=== PATIENT | female | born 1985 | race Two or more races ===

== ENCOUNTER 2017-06-04 07:45 | Inpatient (IN) | payer OTHER ==
--- NOTE | 2017-05-28 12:33 | GHP ---
[f rep st] PREOP HISTORY AND PHYSICAL DATE OF ADMISSION: 06/04/2017 DATE OF SURGERY: Will be 05/28/2017. PREOPERATIVE DIAGNOSIS: Intrauterine at 39 and 1/7 weeks gestation with breech presentation. PROCEDURE TO BE PERFORMED: Primary lower transverse section. SURGEON: Dr. iCara Claudio. DECISION SUPPORT MANAGER: Jacqueline Kline RN HISTORY OF PRESENT ILLNESS: Johanny is a 32-year-old, 1, para 0, with a last menstrual period of 09/02/2016, and an EDC of 06/10/2017, which was confirmed by an 11 week ultrasound. She has had good care at [facility] since registration at 11 weeks and has had an uncomplicated course. Her risk factors include exercise-induced asthma, history of a syncopal episode and a breech presentation diagnosed at 34 weeks. The patient has confirmed again breech presentation today. She has been offered an attempted external cephalic version and carefully reviewed the risks and benefits of that procedure and she has declined that procedure; she wishes to have a for delivery. The patient has no past obstetrical history. This is her first . PAST GYNECOLOGICAL HISTORY: She has a normal menstrual triad, with menarche at 13; interval every 28-30 days, length of 5 days showing regular last menstrual period of 09/02/2016. She has a history of an abnormal Pap back in 2004, had a colposcopy; no treatment was done. The rest of Paps have been normal and no history of any sexually transmitted diseases. PAST MEDICAL HISTORY: Significant only for exercise-induced asthma. She had a syncopal episode. She has had a negative full workup with Cardiology and Neurology. SURGICAL HISTORY: In 2002 she had a left ACL repair, 2006 an arthroscopy to her left knee and in 2014 a right ACL repair. ALLERGIES: No known drug allergies. MEDICATIONS: Include albuterol inhaler p.r.n., Claritin p.r.n., vitamins with DHA. LABS: She is A positive, antibody negative, RPR nonreactive, rubella immune, hepatitis negative, HIV negative. Cystic fibrosis, SMA, and Fragile X negative. Pap normal. Gonorrhea and chlamydia normal. Verifi normal. AFP negative. 1-hour GTT 89. GBS is negative. SOCIAL HISTORY: She is . She lives with her . She works as a physician's chemical laboratory assistant in Neurosurgery and she denies tobacco, alcohol and drug use. He has 2 children from a previous marriage. FAMILY HISTORY: Maternal grandfather had coronary artery disease. Maternal grandfather had hypertension. Maternal aunt had thyroid disease and lupus. Paternal aunt had seizures. Brother has asthma. No other significant history. OBJECTIVE: VITAL SIGNS: Today she is afebrile. Blood pressure is 92/56. Urine dip is negative. Weight is 157. She has had a total of 33 pound weight gain in this . GENERAL: She is a well-developed, well-nourished, gravid female, in no acute distress. LUNGS: Clear to auscultation bilaterally. HEART: Regular rate and rhythm. No murmurs. ABDOMEN: Gravid. Nontender. Fundal height is 38. heart tones are in [id number] and the baby is confirmed breech. PELVIC: Exam was deferred. ASSESSMENT/PLAN: 32-year-old, 1, para 0, who will be 39 and 1/7th weeks gestation on 06/04/2017, desired a scheduled for breech presentation. The patient was consented for the procedure today. She understands the risks and benefits. Risks including bleeding, infection, damage to internal organs, uterus, tubes, ovaries, bowel, bladder, nerves, blood vessels, ureters, risk of injury, risk of hemorrhage requiring blood transfusion, or hysterectomy. She understood these risks and benefits and agreed to proceed. /[id number]/MODL MTDD
[2017-06-04] MEDS ORDERED: ceFAZolin 2 GM/DEXTROSE 100 ML IV ONE (08:15)
[2017-06-04] MEDS ORDERED: CITRIC ACID/SODIUM CITRATE 30 ML UDCUP PO ONE ×2 (08:15→08:25)
[2017-06-04] MEDS ORDERED: LR 500 ML IV ONE ×2 (08:25→08:30)
--- NOTE | 2017-06-04 08:27 | PREANESOB ---
Obstetric Pre-Anesthesia Info - General Info Proposed Procedure: C Section : 1 Para: 0 WBD: 39 - Info Status: Full Term Monitors: External FHR Baseline (bpm): 130 FHR Pattern: Reassuring - Labor Status Section History: Primary Indications for Current Section: Breech Labor Epidural: No Anesthesia ROS: Heartburn with . S/P spinal for knee surgery x 3. Allergies/Adverse Reactions: Allergy/AdvReac Type Severity Reaction Status Date / Time No Known Allergies Allergy Unverified 06/04/17 08:01 Visit Medications: Generic Name Dose Route Start Last Admin Trade Name Freq PRN Reason Stop Dose Admin Lactated Ringer's 500 mls @ 0 mls/hr 06/04/17 08:30 Lr IV 06/04/17 08:31 ONCE ONE As Directed Lactated Ringer's 1,000 mls @ 125 mls/hr 06/04/17 08:30 Lr IV 12/01/17 08:29 CONT ERICKA Cefazolin Sodium/Dextrose 100 mls @ 200 mls/hr 06/04/17 08:15 Ancef 2 Gm (Premix) IV 06/04/17 08:44 ONCALL ONE Discontinued Medications Generic Name Dose Route Start Last Admin Trade Name Freq PRN Reason Stop Dose Admin Citric Acid/Sodium Citrate 30 ml 06/04/17 08:15 Bicitra PO 06/04/17 08:16 ONCALL ONE - Anesthesia History Response to Local Anesthetics: Normal Anesthesia & Operative History: No Prior Problems Family Anesthesia History: Negative - Social History Substance Use/Abuse: Denies - Focused Exam Blood Pressure: 124/87 Heart Rate: 46 Physical Exam: Within normal limits. ASA Status: II - Plan Consent Signed and on Chart: Yes Patient/Guardian Understands and Agrees to Plan: Yes
[2017-06-04] MEDS ORDERED: LR 1,000 ML IV SCH ×2 (08:30)
[2017-06-04] MEDS ORDERED: LIDOCAINE 1% 2 ML INJ ONE (08:56)
[2017-06-04] MEDS ORDERED: morphINE PF 10 MG/10 ML INJ ONE (09:10)
[2017-06-04] MEDS ORDERED: fentaNYL 100 MCG/2 ML INJ ONE (09:11)
[2017-06-04 09:22] LABS: % IMMATURE GRANULYOCYTES 0.3 % (0.0-1.1); ABSOLUTE IMMATURE GRANULOCYTES 0.02 10^3/uL (0.00-0.10); ADD DIFF? NO; ADD MORPH? NO; ADD SCAN? NO; ATYPICAL LYMPHOCYTE FLAG 0 (0-99); FRAGMENT RBC FLAG 0 (0-99); HEMATOCRIT 39.2 % (38.0-47.0); HEMOGLOBIN 13.7 g/dL (12.6-16.3); LEFT SHIFT FLG 0 (0-99); LIPEMIA HEMOLYSIS FLAG 90 (0-99); MEAN CELL HEMOGLOBIN 28.5 pg (27.9-34.1); MEAN CELL HEMOGLOBIN CONCENTR. 34.9 g/dL (32.4-36.7); MEAN CELL VOLUME 81.7 fL (81.5-99.8); MEAN PLATELET VOLUME 10.9 fL (8.7-11.7); PLATELET CLUMPS FLAG 0 (0-99); PLATELET COUNT 150 10^3/uL (150-400); RED CELL DISTRIBUTION WIDTH 12.7 % (11.5-15.2)
[2017-06-04] MEDS ORDERED: ONDANSETRON 4 MG/2 ML VIAL ONE (09:22)
[2017-06-04] MEDS ORDERED: DEXAMETHASONE 4 MG/ML VIAL ONE (09:22)
[2017-06-04] MEDS ORDERED: OXYTOCIN 100 UNITS/10 ML VIAL ONE (09:22)
[2017-06-04] MEDS ORDERED: PHENYLEPHRINE HCL 100 MCG/ML SYR ONE (09:22)
[2017-06-04] MEDS ORDERED: SIMETHICONE 80 MG TAB CHEW PO PRN (11:03)
[2017-06-04] MEDS ORDERED: DOCUSATE SODIUM 100 MG CAP PO PRN (11:03)
[2017-06-04] MEDS ORDERED: HYDROCODONE/APAP 5/325 TAB PO PRN (11:03)
[2017-06-04] MEDS ORDERED: ACETAMINOPHEN 325 MG TAB PO PRN (11:03)
[2017-06-04] MEDS ORDERED: PROMETHAZINE HCL 25 MG/ML INJ IVP PRN (11:03)
[2017-06-04] MEDS ORDERED: BISACODYL 10 MG SUPP PR PRN (11:04)
[2017-06-04] MEDS ORDERED: LACTULOSE 20 GM/30 ML UDCUP PO PRN (11:04)
[2017-06-04] MEDS ORDERED: MAGNESIUM HYDROXIDE 30 ML UDCUP PO PRN (11:04)
[2017-06-04] MEDS ORDERED: POLYETHYLENE GLYCOL 3350 17 GM PKT PO PRN (11:04)
--- NOTE | 2017-06-04 11:08 | OBDEL ---
Info Type: Primary GBS+: No Indications for Delivery: Elective (39 weeks, breech presentation) Operative Report - Delivery Pre-op Diagnoses: IUP @ 39 weeks, breech presentation Post-op Diagnoses: same Nulliparous Prior to Delivery: Yes Presentation at Delivery: Breech Procedure: Scheduled Surgeon: Ciara Claudio Geriatric Nursing Assistant: Rossana Kerr Anesthesiologist: Devon Farooq Formulation Scientist/FARMER AND GRAZIER: Areli Hi L&Justin Analgesia/Anesthesia Type: Spinal Complications: None Findings: normal uterus, tubes and ovaries IV Fluid (ml): 3,000 EBL: 800 Data Lindsay Delivery Date: 06/04/17 Delivery Time: 10:14 DAMIAN: 06/10/17 Gestational Age: 39 week(s) and 1 day(s) Sex of Infant: Male Score (1 Min): 8 Score (5 Min): 8 ICD10 Worksheet Patient Problems: Problems Problem Status Onset Delivery by section for breech presentation Acute - ICD10 Problem Qualifiers (1) Delivery by section for breech presentation
[2017-06-04] MEDS ORDERED: NALOXONE HCL 0.4 MG/ML INJ IVP PRN (11:58)
--- NOTE | 2017-06-04 12:00 | POSTANESTH ---
Post Anesthetic Evaluation Cardiovascular Status: Normal, Stable Respiratory Status: Normal, Stable, Similar to Pre-op Cond. Level of Consciousness/Mental Status: Can Participate in Eval, Alert and Oriented Pain Control: Adequate, Prn Tx Ordered Nausea/Vomiting Control: Adequate, Prn Tx Ordered Complications Possibly Related to Anesthesia: None Noted
[2017-06-04] MEDS ORDERED: KETOROLAC 30 MG/1 ML SDV ONE (12:22)
[2017-06-04] MEDS: KETOROLAC 30 MG/1 ML SDV IVP PRN ×2 (12:24→18:20)
[2017-06-04] MEDS: ONDANSETRON 4 MG/2 ML VIAL IVP PRN ×2 (17:08→23:05)
--- NOTE | 2017-06-04 22:38 | GOP ---
[f rep st] OPERATIVE REPORT DATE OF OPERATION: 06/04/2017 SURGEON: Ciara Claudio MD LANGUAGE TEACHER: Rossana Kerr DO. ANESTHESIA: Spinal anesthesia. ANESTHESIOLOGIST: Dr. Devon Farooq PREOPERATIVE DIAGNOSIS: Intrauterine at 39 and 1/7 weeks' gestation with breech presentat ion. POSTOPERATIVE DIAGNOSIS: Intrauterine at 39 and 1/7 weeks' gestation with breech presenta tion. PROCEDURE PERFORMED: Primary lower transverse section. FINDINGS: Viable male. Apgars of 8 and 8. Weight of 7 pounds 3 ounces. ESTIMATED BLOOD LOSS: For the procedure was 800 cc. INDICATIONS: The patient is a 32-year-old, 1, para 0, with a last menstrual period of 09/02, and an EDC of 06/10/2017, confirmed by 11-weeks' ultrasound. She has had good care at [facility] since registration at 11 weeks. Had an uncomplicated course. She was diagnosed with breech presentation at 34 weeks, and confirmed breech presentation throughout the remainder of her . She was offered an attempted external cephalic version, carefully revie wing the risks and benefits, and patient declined. The patient agreed that she wished to have a lili le for breech. She was consented for the procedure. She understood the risks and benef its. The risks including bleeding, infection, damage to internal organs, uterus, tubes, ovaries, kath wel, bladder, nerves, blood vessels, ureters, risk of injury, risk of hemorrhage requiring blo od transfusion, hysterectomy, and . She understood these risks and benefits, agreed to proceed . DESCRIPTION OF PROCEDURE: Patient was taken to the operating room, where she was given a spinal ane sthesia without difficulty. She was prepped and draped in the dorsal supine position with a leftwar d tilt, and a Gracia catheter was placed in her bladder. After adequate anesthesia was assured, a tr ansverse skin incision was made with a scalpel, and the incision was carried down to the underlying layer of fascia with the Bovie. The fascia was incised in the midline. Fascial incision was extend ed laterally with Nettles scissors. Superior aspect of the fascial incision was grasped with Darinel cl amps, elevated, and the rectus muscles were dissected off sharply. Inferior aspect of the fascial i ncision was grasped with Darinel clamps, elevated, and the rectus muscles were dissected off sharply. Rectus muscles were in the midline. Peritoneum was entered sharply. Peritoneal incisio n was extended superiorly and inferiorly with good visualization of bladder. Bladder blade was inse rted, and the vesicouterine peritoneum was entered sharply with Metzenbaum scissors. The incision w as extended laterally, and bladder flap was created digitally. Bladder blade was reinserted, and e uterus was incised with a knife. There was clear amniotic fluid upon entry in the uterine cavity. The incision was extended laterally with bandage scissors. The was in bethany breech present ation. Was delivered atraumatically with standard breech extraction maneuvers. The mouth and nose were bulb suctioned. Cord was clamped and cut. was handed off to the waiting nurse practitioner. Cord bloods were sent. The placenta was removed manually. The uterus was exteriori zed and cleared of all clots and debris. The uterine incision was repaired with 0 Vicryl in a runni ng, locked fashion, and a second imbricating suture was performed with 0 Vicryl, and good hemostasis was obtained. The uterus was returned to the abdomen. Gutters were cleared of all clots and debri s. Reinspection of the uterine incision again assured hemostasis. The rectus muscles were approxim ated with 2-0 Vicryl in inverted mattress fashion. The fascia was closed with #1 Vicryl in a runnin g fashion. The subcutaneous layer was closed with 2-0 Vicryl. Skin was closed with 4-0 Vicryl. Th e patient tolerated the procedure well. Sponge, lap, needle, and instrument counts were correct x2. Patient went to the recovery room in good condition. FLUID REPLACEMENT: 3000 cc. URINE OUTPUT: 200 cc. /[id number]/MODL
[2017-06-05] MEDS: KETOROLAC 30 MG/1 ML SDV IVP PRN ×2 (00:18→06:24)
[2017-06-05] MEDS: SENNOSIDES/DOCUSATE SODIUM TAB PO SCH ×3 (01:10→23:14)
--- NOTE | 2017-06-05 11:44 | OBPP ---
Progress Note Assessment/Plan: Assessment: 32 y/o POD #1 s/p LTCS secondary to breech Plan: Bifera QD, PO pain meds and support. Pt with desire to d/c home tomorrow. 06/05/17 11:44 Subjective: Pt is doing well this am. She reports min pain controlled with Toradol. Ambulating and voiding without difficulty and has min lochia. She is working on breast feeding and baby is doing well. Objective: 06/05/17 04:40 Patient ABO/Rh A POSITIVE 06/04/17 09:05 Temp Pulse Resp BP Pulse Ox 36.6 C 67 16 110/75 96 06/05/17 08:00 06/05/17 08:00 06/05/17 08:00 06/05/17 08:00 06/05/17 08:00 Uterine Position/Fundal Height: Umbilicus -2 Uterine Tone: Firm Physical Exam - Physical Exam General Appearance: WD/WN, alert, no apparent distress Neck: non-tender, full range of motion, supple Respiratory: chest non-tender, lungs clear, normal breath sounds Cardiac/Chest: regular rate, rhythm Abdomen: normal bowel sounds, incision (c/d/i, steristrips saturated but old blood) Extremities: swelling (no), Amelia's sign (neg)
[2017-06-05] MEDS: IRON POLYSAC/IRON HEME 28 MG TAB PO SCH (12:17)
[2017-06-05] MEDS: IBUPROFEN 600 MG TAB PO PRN ×2 (12:17→18:18)
[2017-06-05 20:54] VITALS: RESP 16
[2017-06-06] MEDS: IBUPROFEN 600 MG TAB PO PRN ×2 (03:31→10:08)
[2017-06-06] MEDS: IRON POLYSAC/IRON HEME 28 MG TAB PO SCH (10:08)
[2017-06-06] MEDS: SENNOSIDES/DOCUSATE SODIUM TAB PO SCH (10:10)
[2017-06-06 10:53] VITALS: BP 123/79; PULSE 65; TEMP 98.2; O2SAT 92
--- NOTE | 2017-06-06 11:40 | OBPP ---
Progress Note Assessment/Plan: Assessment: 1) s/p 1 LTCS secondary to breech POD # 2 - pt is stable 2) Anemia - pt is asymptomatic Plan: Plan for d/c home today Instructions reviewed with pt No Rx given Cont PNV, iron and colace Pelvic rest RTC in 2,4 and 6 weeks for pp visit 06/06/17 11:37 Subjective: Pt seen and examined. Doing well with no complaints. Pain is well controlled with Motrin and Tylenol. Pt is OOB, valeriy regular diet, voiding without difficulty and passing flatus. No BM yet. Denies any f/c/n/v/CP or SOB. BF without difficulty. Wants to go home today. Objective: 06/05/17 04:40 Patient ABO/Rh A POSITIVE 06/04/17 09:05 Temp Pulse Resp BP Pulse Ox 36.8 C 65 16 123/79 H 92 06/06/17 08:40 06/06/17 08:40 06/06/17 08:40 06/06/17 08:40 06/06/17 08:40 Uterine Position/Fundal Height: Umbilicus -2 Uterine Tone: Firm Physical Exam - Physical Exam General Appearance: WD/WN, alert, no apparent distress Respiratory: lungs clear, normal breath sounds Cardiac/Chest: regular rate, rhythm Abdomen: normal bowel sounds, non-tender, soft, flatus (+), incision (C/D/I with steri strips) Extremities: non-tender, normal inspection Skin: normal color, warm/dry Neuro/Psych: alert, normal mood/affect, oriented x 3
--- NOTE | 2017-06-06 11:43 | OBGCSDC ---
General Delivery Information - General Info : 1 Para: 1 Delivery Physician/CNM: Ciara Claudio Fur Polisher: Rossana Kerr Admission Date: 06/04/17 Labs: Patient ABO/Rh A POSITIVE 06/04/17 09:05 Hct 30.3 % (38.0-47.0) L 06/05/17 04:40 Vaginal - Diagnosis Presentation at Delivery: Breech - Operations/Procedures L&D Analgesia/Anesthesia Type: Spinal - Delivery Number of Prior Sections: 0 Indications for Current Section: Breech Type: Primary Surgical Procedures: Low Transverse Intra-op Complications: None EBL: 800 cc L&D Analgesia/Anesthesia Type: Spinal - Hospital Course Antepartum: Uncomplicated; Breech presentation Intrapartum: Presented for [facility] secondary to breech-scheduled. : Pain well controlled with Motrin and Tylenol. Passing flatus, no BM yet. Voiding without difficulty. Moderate lochia. BF without difficulty. Data Lindsay Delivery Date: 06/04/17 Delivery Time: 10:14 DAMIAN: 06/10/17 Gestational Age: 39 week(s) and 3 day(s) Sex of : Male Weight (gm): 3252 g Score (1 Min): 8 Score (5 Min): 8 Discharge Information - Discharge Information Discharge Medications: Ibuprofen, Vitamins Condition: Good Instruction/Follow Up: Two Weeks, Four Weeks, Six Weeks Discharge Physician/CNM: Rossana Kerr
== END 2017-06-06 12:07 | disposition home or self-care (01) | DRG 766 ==
LOC: FLD 07:45 → FOB 13:05
PROVIDERS: ADMIT Obstetrics & Gynecology; ATTEND Obstetrics & Gynecology
PROC: 10D00Z1 Extraction of Products of Conception, Low, Open Approach (ICD-10-PCS; principal; 2017-06-04)
DX: O32.1XX0 Maternal care for breech presentation, not applicable or unspecified (principal); O90.81 Anemia of the puerperium; O99.52 Diseases of the respiratory system complicating childbirth; J45.909 Unspecified asthma, uncomplicated; Z3A.39 39 weeks gestation of pregnancy; Z37.0 Single live birth
CPT/HCPCS: J0690; J1100; J1885; J2274; J2370; J2405; J2550; J2590; J3010

== ENCOUNTER → 2018-09-05 | Outpatient (CLI) | payer OTHER | LOC: FIMAGING 13:55 | PROVIDERS: ATTEND Hospitalist | DX: O30.041 Twin pregnancy, dichorionic/diamniotic, first trimester (principal); Z3A.12 12 weeks gestation of pregnancy ==

== ENCOUNTER → 2018-09-26 | Outpatient (CLI) | payer OTHER | LOC: FIMAGING 14:09 | PROVIDERS: ATTEND Obstetrics & Gynecology | DX: O30.042 Twin pregnancy, dichorionic/diamniotic, second trimester (principal); O09.292 Supervision of pregnancy with other poor reproductive or obstetric history, second trimester; Z3A.15 15 weeks gestation of pregnancy ==

== ENCOUNTER → 2018-10-11 | Outpatient (CLI) | payer OTHER | LOC: FIMAGING 14:59 | PROVIDERS: ATTEND Hospitalist | DX: O30.042 Twin pregnancy, dichorionic/diamniotic, second trimester (principal); O34.219 Maternal care for unspecified type scar from previous cesarean delivery; Z20.828 Contact with and (suspected) exposure to other viral communicable diseases; Z3A.17 17 weeks gestation of pregnancy ==

== ENCOUNTER → 2018-10-24 | Outpatient (CLI) | payer OTHER | LOC: FIMAGING 13:30 | PROVIDERS: ATTEND Obstetrics & Gynecology | DX: O30.042 Twin pregnancy, dichorionic/diamniotic, second trimester (principal); Z3A.19 19 weeks gestation of pregnancy; O34.219 Maternal care for unspecified type scar from previous cesarean delivery ==

== ENCOUNTER → 2018-11-10 | Outpatient (CLI) | payer OTHER | LOC: FIMAGING 12:17 | PROVIDERS: ATTEND Hospitalist | DX: O30.042 Twin pregnancy, dichorionic/diamniotic, second trimester (principal); Z3A.21 21 weeks gestation of pregnancy ==

== ENCOUNTER → 2018-11-22 | Outpatient (CLI) | payer OTHER | LOC: FIMAGING 13:57 | PROVIDERS: ATTEND Obstetrics & Gynecology | DX: O30.042 Twin pregnancy, dichorionic/diamniotic, second trimester (principal); O09.292 Supervision of pregnancy with other poor reproductive or obstetric history, second trimester; Z3A.23 23 weeks gestation of pregnancy ==

== ENCOUNTER → 2018-12-20 | Outpatient (CLI) | payer OTHER | LOC: FIMAGING 14:45 | PROVIDERS: ATTEND Obstetrics & Gynecology | DX: O30.043 Twin pregnancy, dichorionic/diamniotic, third trimester (principal); Z3A.28 28 weeks gestation of pregnancy; R00.0 Tachycardia, unspecified; O34.219 Maternal care for unspecified type scar from previous cesarean delivery ==

== ENCOUNTER 2019-01-06 16:36 | Observation (INO) | payer OTHER ==
--- NOTE | 2019-01-06 18:03 | OBPROG ---
Labor Progress Note Assessment/Plan: Assessment: 33 yo at 29w4d with Dez twins sent over from office for monitoring due to decreased FM. W over an hour of tracing - Category I for both babies and pt now feeling better /increased FM. DC home, f/u in office as currently scheduled. JM FHR: Twin A: 140bpm, mod artem, accels present, no decels. Twin B: 150bpm, mod artem, accels present, no decels. Oxytocin Orders Assessment - Pre-Induction/Augmentation Assessment Gestational Age: 29 week(s) and 4 day(s) ICD10 Worksheet Patient Problems: Problems Problem Status Onset Delivery by section for breech presentation Acute
== END 2019-01-06 18:15 | disposition home or self-care (01) ==
LOC: FLD 16:36
PROVIDERS: ADMIT Obstetrics & Gynecology; ATTEND Obstetrics & Gynecology
DX: O36.8130 Decreased fetal movements, third trimester, not applicable or unspecified (principal); O30.043 Twin pregnancy, dichorionic/diamniotic, third trimester; Z3A.29 29 weeks gestation of pregnancy
CPT/HCPCS: 59025; G0378

== ENCOUNTER → 2019-01-16 | Outpatient (CLI) | payer OTHER | LOC: FIMAGING 14:36 | PROVIDERS: ATTEND Obstetrics & Gynecology | DX: O30.043 Twin pregnancy, dichorionic/diamniotic, third trimester (principal); O99.513 Diseases of the respiratory system complicating pregnancy, third trimester; O34.219 Maternal care for unspecified type scar from previous cesarean delivery; J45.901 Unspecified asthma with (acute) exacerbation; Z3A.31 31 weeks gestation of pregnancy ==

== ENCOUNTER → 2019-01-18 | Outpatient (CLI) | payer OTHER | LOC: FIMAGING 14:55 | PROVIDERS: ATTEND Hospitalist | DX: M79.604 Pain in right leg (principal); O30.003 Twin pregnancy, unspecified number of placenta and unspecified number of amniotic sacs, third trimester ==

== ENCOUNTER 2019-02-06 13:41 | Observation (INO) | payer OTHER | END 2019-02-06 14:30 | disposition home or self-care (01) | LOC: FLD 13:41 | PROVIDERS: ADMIT Obstetrics & Gynecology; ATTEND Obstetrics & Gynecology | DX: O30.093 Twin pregnancy, unable to determine number of placenta and number of amniotic sacs, third trimester (principal); Z3A.34 34 weeks gestation of pregnancy ==

== ENCOUNTER 2019-02-09 12:35 | Outpatient (CLI) | payer OTHER | END 2019-02-09 13:21 | disposition home or self-care (01) | LOC: FOBOP 12:35 | PROVIDERS: ATTEND Obstetrics & Gynecology | DX: O30.003 Twin pregnancy, unspecified number of placenta and unspecified number of amniotic sacs, third trimester (principal); Z3A.34 34 weeks gestation of pregnancy ==

== ENCOUNTER 2019-02-13 12:53 | Outpatient (CLI) | payer OTHER | END 2019-02-13 13:45 | disposition home or self-care (01) | LOC: FOBOP 12:53 ==

== ENCOUNTER 2019-02-16 12:21 | Outpatient (CLI) | payer OTHER ==
--- NOTE | 2019-02-16 13:28 | OBPROG ---
Labor Progress Note Assessment/Plan: Assessment: IUP at 35 wks twin gestation routine monitoring Plan: reactive NSTs, nonpalpable ctxns infreq 02/16/19 13:24 Subjective/Intrapartum Course: 02/16/19 13:26 per RN pt feeling well . not feeling any discomfort for ctxns. GFM x2, no bld , no LOF, has u/s appt today - is taking ursodil - helps - Contraction Pattern Assessment Current Contraction Pattern: Other (Specify) (occas infeq mild ctxns) - FHR Assessment Twin A FHR (bpm): 120 FHR Pattern Variability: Moderate FHR Category: 1 (reactive) Twin B FHR (bpm): 130 FHR Pattern Variability: Moderate FHR Category: 1 (reactive) Oxytocin Orders Assessment - Pre-Induction/Augmentation Assessment Gestational Age: 35 week(s) and 3 day(s) ICD10 Worksheet Patient Problems: Problems Problem Status Onset Decreased movement Acute Delivery by section for breech presentation Acute
== END 2019-02-16 13:30 | disposition home or self-care (01) ==
LOC: FOBOP 12:21
PROVIDERS: ATTEND Hospitalist
DX: O30.043 Twin pregnancy, dichorionic/diamniotic, third trimester (principal); O26.611 Liver and biliary tract disorders in pregnancy, first trimester; K83.1 Obstruction of bile duct; O34.219 Maternal care for unspecified type scar from previous cesarean delivery; Z3A.34 34 weeks gestation of pregnancy

== ENCOUNTER 2019-02-20 11:54 | Outpatient (CLI) | payer OTHER ==
--- NOTE | 2019-02-20 13:11 | OBPROG ---
Labor Progress Note Assessment/Plan: Assessment: IUP at 36 wks with twins for routine monitoring Plan: reactive NSTs x2, d/c home 02/20/19 13:08 Subjective/Intrapartum Course: 02/20/19 13:09 PT NOT SEEN per RN, pt without complaints. GFM x2, no bld, LOF or painful ctxns - Contraction Pattern Assessment Current Contraction Pattern: Irregular (infreq) - FHR Assessment Twin A FHR (bpm): 120 FHR Pattern Variability: Moderate FHR Category: 1 (reactive with accels, no decels) Twin B FHR (bpm): 130 FHR Pattern Variability: Moderate FHR Category: 1 (reactive with accels, no decels) Oxytocin Orders Assessment - Pre-Induction/Augmentation Assessment Gestational Age: 36 week(s) and 0 day(s) ICD10 Worksheet Patient Problems: Problems Problem Status Onset Decreased movement Acute Delivery by section for breech presentation Acute
== END 2019-02-20 12:40 | disposition home or self-care (01) ==
LOC: FOBOP 11:54
PROVIDERS: ATTEND Obstetrics & Gynecology
DX: O30.003 Twin pregnancy, unspecified number of placenta and unspecified number of amniotic sacs, third trimester (principal); Z3A.36 36 weeks gestation of pregnancy

== ENCOUNTER 2019-02-23 10:26 | Outpatient (CLI) | payer OTHER ==
--- NOTE | 2019-02-23 11:33 | OBPROG ---
Labor Progress Note Assessment/Plan: Assessment: 33 y/o with di-di TIUP @ 36 3/7 weeks her for a NST Cholestasis of Plan: NST reactive, Cat I tracing x 2 Stable for d/c home with plan for scheduled RCS 02/28 secondary to cholestasis of - improved now since on Ursodiol BPs initially were elevated at 135/76 and then repeated 116/71, 108/69 and 111/ 71 Pt is asymptomatic at this time; reviewed PIH labs done 02/20 and all wnl with a P :C of 0.02 PTL precautions and PIH precautions given to pt 02/23/19 11:41 Subjective/Intrapartum Course: 02/23/19 11:33 Pt seen and examined. Doing well, but noted increased swelling in lower extremities since being seen 3 days ago. She had some protein in her urine and had PIH labs drawn 02/20. She denies any HAs or any visual changes at this time. She has noted b/l upper abd discomfort secondary to babies and weight of belly she thinks, but no specific pain under R breast or near ribcage. Her symptoms of cholestasis has improved since she started medication-Ursodiol. Good FM x 2. She had some +ctx's last night, about 4 in one hour, and then hydrated and was able to sleep. No further ctx's noted today. No LOF or VB. - Contraction Pattern Assessment Current Contraction Pattern: Irregular - FHR Assessment Twin A FHR (bpm): 120 FHR Pattern Variability: Moderate FHR Category: 1 Twin B FHR (bpm): 130 FHR Pattern Variability: Moderate FHR Category: 1 - Physical Exam General Appearance: WD/WN, alert, no apparent distress Abdomen: non-tender, soft, other (gravid) Extremities: non-tender, normal inspection DTR- Lower Extremities: Plantar (R): 1+, Plantar (L): 1+ Skin: normal color, warm/dry Neuro/Psych: alert, normal mood/affect, oriented x 3 Oxytocin Orders Assessment - Pre-Induction/Augmentation Assessment Gestational Age: 36 week(s) and 3 day(s) ICD10 Worksheet Patient Problems: Problems Problem Status Onset Twin gestation in third trimester Acute
== END 2019-02-23 11:55 | disposition home or self-care (01) ==
LOC: FOBOP 10:26
PROVIDERS: ATTEND Obstetrics & Gynecology
DX: O30.043 Twin pregnancy, dichorionic/diamniotic, third trimester (principal); Z3A.36 36 weeks gestation of pregnancy; O26.613 Liver and biliary tract disorders in pregnancy, third trimester; K83.1 Obstruction of bile duct

== ENCOUNTER 2019-02-27 13:04 | Outpatient (CLI) | payer OTHER | END 2019-02-27 14:22 | disposition home or self-care (01) | LOC: FOBOP 13:04 | PROVIDERS: ATTEND Obstetrics & Gynecology | DX: O30.003 Twin pregnancy, unspecified number of placenta and unspecified number of amniotic sacs, third trimester (principal); Z3A.37 37 weeks gestation of pregnancy ==

== ENCOUNTER 2019-02-28 05:35 | Inpatient (IN) | payer OTHER ==
--- NOTE | 2019-02-22 15:15 | GHP ---
[f rep st] PREOP HISTORY AND PHYSICAL DATE OF ADMISSION: 02/28/2019 DATE OF SURGERY: 02/28/2019 PREOPERATIVE DIAGNOSIS: Intrauterine with diamniotic dichorionic twin gestation at 37-1/7 weeks' gestation, also cholestasis of and also multiparity, desires permanent elective ster ilization. SURGERY TO BE TO PERFORMED: Repeat lower transverse section of twin babies and bilateral sa lpingectomy. SURGEON: Ciara Claudio MD REAL ESTATE EXECUTIVE ASSISTANT: Marlene Bedolla MD HISTORY OF PRESENT ILLNESS: The patient is a -munq-gau, 2, para 1-0-0-1 with a las t menstrual period of 06/05/2018, and an EDC of 03/20/2019, which was confirmed by a 7-week ultrasoun d. At that 7-week ultrasound, she was also diagnosed with having spontaneous diamniotic dichorionic twins, both viable, and she has been followed closely in this . Her significant ri sk factors are history of in 2016 secondary to breech presentation, patient desires a repea t section for these babies, exercise-induced asthma. She did have an asthma exacerbation in due to a URI but is now doing well. Dez twins have had good growth, monitored clos thiago. She had a positive urine drug screen for opiates early in July, however, felt to be due to poppy seed muffins. Her repeats were negative. She was positive for parvovirus IgG and IgM. Diffi cult to say if it was a recent infection. She had careful monitoring with MFM with weekly screening for hydrops and anemia, was cleared at 23 weeks. Twin B has a velamentous cord insertion, and she wa s diagnosed with cholestasis of at 35 weeks , started on Ursodiol, and recommended delivery at 37 weeks. Her twins have been well grown. Most recent ultrasound on 02/16/2019, twin A is breech and is not the presenting twin, baby is on the left. Twin B is vertex and presenting as on the right. Twin A estimated weight was 2538 g, 33rd percentile, MVP was 5.0, placenta is ante rior. Twin B was 2594 g, 39th percentile, MVP was 5.1, and baby is vertex and the presenting twin. Anatomy was normal. Recommendation per Dr. Shanks is repeat at 37 weeks. Patient is stabl e on Actigall, and she has 2 times a week nonstress tests and kick counts. Her labs that were signif icant for her diagnosis of cholestasis were drawn on February 13, 2019. She had an elevated AST of 49, A LT of 58, alk phos was 240, bilirubin was normal. Her bile acids were positive with colic acids of 8 .03. Those have not been rechecked. She did have some proteinuria at her last visit and camacho d PIH labs drawn. She has had normal blood pressures. PIH labs drawn were stable with a white count of 8.21, hemoglobin of 12.8, hematocrit 38, platelets 176, BUN 12, creatinine 0.8, uric acid was 7.3 , AST 34, ALT 47, and LDH of 471. Blood pressures most recently 106/68, so we are all in agreement t hat delivery is indicated at 37 weeks for the above factors. PAST OBSTETRICAL HISTORY: In May of 2017, she had a viable male, 7 pounds 3 ounces, planned C-secti on at 39 weeks for breech presentation. Patient declined external cephalic version. GYNECOLOGICAL HISTORY: Menarche at age 13, interval every 28 to 30 days, length of 5 days. Last men strual period was June 05, 2018. It was sure and regular, planned 2nd . She had 1 abnormal Pap with high-risk HPV. Colposcopy was ALEYDA 1, and she has no treatment since. She had a Mirena IUD placed immediately after the of her son, removed in May for . No other gynecologica l issues. PAST MEDICAL HISTORY: Significant for exercised-induced asthma. Uses an albuterol inhaler as needed . She did have an exacerbation of her asthma symptoms with the URI this , but she ultimatel y did fine. She was prone to syncope, had negative cardio and neuro workup with EKG and EEG. PAST SURGICAL HISTORY: In May of 2017, she had her . In 2014, she had a right ACL. In 03 06, arthroscopy of her left knee, and in 2002, a left ACL repair and wisdom teeth extraction. ALLERGIES: She has no known drug allergies. MEDICATIONS: vitamins, DHA, and ursodiol 50 mg t.i.d. SOCIAL HISTORY: She is . She lives with her , [place], and her son and her 2 stepchildr roxana. 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 She denies tobacco, alcohol, and drug use. FAMILY HISTORY: Paternal grandfather had heart disease, a CABG, and hypertension. Maternal grandmot her and maternal grandfather had type 2 diabetes. Maternal aunt had thyroid disease and lupus. Liz anikal grandfather had metastatic prostate cancer. Paternal grandmother had lymphoma. LABORATORY DATA: She is A positive, antibody negative, RPR nonreactive, rubella immune, hepatitis ne gative, HIV negative. Standard panel negative. Panorama was done which was negative for both twins, viable males. Pap was negative but positive for HPV types 18 and 45 in February of 2018. AFP was nega tive. One-hour GTT 85. GBS was negative. Varicella was immune. Parvovirus suggested possible rece nt infection, but careful monitoring ruled out babies for anemia or hydrops. REVIEW OF SYSTEMS: Negative except for pertinent positives as above in HPI. ASSESSMENT AND PLAN: A -cgqf-epk 2, para 1-0-0-1, who will be 37 weeks and 1 day w ith diamniotic dichorionic twin gestation and cholestasis of , desires repeat secti on and bilateral salpingectomy. Patient was consented for the procedure. She understands the risks and benefits, the risks including bleeding, infection, damage to the uterus including possible risk o f perforation, damage to other organs if perforation was to occur, damage to internal organs, tubes, ovaries, bowel, bladder, nerves, blood vessels, ureters, damage, hemorrhage requiring blood tra nsfusion or hysterectomy. She understood these risks and benefits and agreed to proceed. /[id number]/MODL
[2019-02-28] MEDS ORDERED: LR 500 ML IV ONE (06:01)
[2019-02-28] MEDS ORDERED: LR 1,000 ML IV SCH (06:01)
[2019-02-28] MEDS ORDERED: CITRIC ACID/SODIUM CITRATE 30 ML UDCUP PO ONE (06:01)
[2019-02-28] MEDS ORDERED: ceFAZolin 2 GM/DEXTROSE 100 ML IV ONE (06:01)
[2019-02-28] MEDS ORDERED: HEMABATE 250 MCG/1 ML AMP IM ONE (06:30)
[2019-02-28] MEDS ORDERED: OXYTOCIN 10 UNIT/ML VIAL ONE (06:30)
[2019-02-28] MEDS ORDERED: MISOPROSTOL 200 MCG TAB ONE (06:30)
[2019-02-28] MEDS ORDERED: METHYLERGONOVINE MAL 0.2 MG/ML INJ ONE (06:31)
[2019-02-28 06:37] LABS: PLATELET COUNT 151 10^3/uL (150-400)
[2019-02-28] MEDS ORDERED: BUPIVACAINE/DEXTROSE 7.5MG/ML 2 ML SPINAL AMP SP ONE (07:26)
[2019-02-28] MEDS ORDERED: METOCLOPRAMIDE 10 MG/2 ML VIAL ONE (07:26)
[2019-02-28] MEDS ORDERED: ONDANSETRON 4 MG/2 ML VIAL ONE (07:26)
[2019-02-28] MEDS ORDERED: morphINE PF 5 MG/10 ML INJ ONE (07:26)
[2019-02-28] MEDS ORDERED: OXYTOCIN 100 UNITS/10 ML VIAL ONE (07:31)
[2019-02-28] MEDS ORDERED: NALOXONE HCL 0.4 MG/ML INJ IVP PRN ×2 (07:35→07:37)
[2019-02-28] MEDS ORDERED: fentaNYL 100 MCG/2 ML INJ IVP PRN (07:35)
[2019-02-28] MEDS ORDERED: ONDANSETRON 4 MG/2 ML VIAL IVP PRN (07:35)
[2019-02-28] MEDS ORDERED: OXYCODONE/APAP 5/325 TAB PO PRN (07:35)
[2019-02-28] MEDS ORDERED: PHENYLEPHRINE HCL 100 MCG/ML SYR IVP PRN (07:35)
[2019-02-28] MEDS ORDERED: HYDROmorphONE/DILAUDID 1 MG/ML INJ IVP PRN (07:35)
--- NOTE | 2019-02-28 07:35 | PDHPUP ---
History & Physical Update H&P update statement: This history and physical update is based on an assessment of the patient which was completed after admission or registration (within 24 hours), but prior to the surgery/procedure. H&P update: H&P reviewed & patient examined, no change in patient's condition since H&P completed
--- NOTE | 2019-02-28 07:38 | PDANEPAE ---
ANE History of Present Illness Repeat for Twins ANE Past Medical History - Cardiovascular History Hx Hypertension: No Hx Arrhythmias: No - Pulmonary History Hx Asthma/Reactive Airway Disease: Yes Hx Sleep Apnea: No Sleep Apnea Screening Result - Last Documented: Negative - Chronic Pain History Chronic Pain: No ANE Review of Systems Review of Systems: - Exercise capacity Exercise capacity: >=4 METS ANE Patient History - Allergies Allergies/Adverse Reactions: No Known Allergies Allergy (Unverified 02/06/19 13:59) - Home Medications Home Medications: Albuterol 5 mg/ml INH [Proventil] PRN 02/06/19 [Last Taken 1 Week Ago ~01/30/19] Calcium Carbonate [Tums Ultra] 02/06/19 [Last Taken 02/06/19] Vit27&Calcium/Iron/FA [ Rx 1 Tablet (RX)] 1 each PO DAILY 02/06 [Last Taken 1 Day Ago ~02/05/19] Ranitidine HCl [Zantac] 150 mg PO BID 02/06/19 [Last Taken 1 Day Ago ~02/05/19] Ursodiol 300 mg PO TID 02/16/19 [Last Taken Unknown] - NPO status NPO Since - Liquids (Date): 02/28/19 NPO Since - Liquids (Time): 04:30 NPO Since - Solids (Date): 02/28/16 NPO Since - Solids (Time): 20:00 - Smoking Hx Smoking Status: Never smoked ANE Labs/Vital Signs - Labs Result Diagrams: 02/28/19 06:25 - Vital Signs Blood Pressure: 108/74 Heart Rate: 52 Respiratory Rate: 16 O2 Sat (%): 96 Height: 162.56 cm Weight: 77.111 kg ANE Physical Exam - Airway Neck exam: FROM Mallampati Score: Class 2 Mouth exam: normal dental/mouth exam - Pulmonary Pulmonary: clear to auscultation - Cardiovascular Cardiovascular: regular rate and rhythym - ASA Status ASA Status: II ANE Anesthesia Plan Anesthesia Plan: spinal
[2019-02-28] MEDS ORDERED: fentaNYL 100 MCG/2 ML INJ ONE ×3 (08:25→08:57)
[2019-02-28] MEDS ORDERED: PROPOFOL/EMULSION 500 MG/50 ML BOTTLE IV ONE (09:00)
[2019-02-28] MEDS ORDERED: BUPIVACAINE 0.25% 10 ML SDV ONE ×2 (09:11→09:26)
[2019-02-28] MEDS ORDERED: KETOROLAC 30 MG/1 ML SDV ONE (09:11)
[2019-02-28] MEDS ORDERED: LACTULOSE 20 GM/30 ML UDCUP PO PRN (09:37)
[2019-02-28] MEDS ORDERED: POLYETHYLENE GLYCOL 3350 17 GM PKT PO PRN (09:37)
[2019-02-28] MEDS ORDERED: BISACODYL 10 MG SUPP PR PRN (09:37)
[2019-02-28] MEDS ORDERED: MAGNESIUM HYDROXIDE 30 ML UDCUP PO PRN (09:37)
[2019-02-28] MEDS ORDERED: SIMETHICONE 80 MG TAB CHEW PO PRN (09:37)
[2019-02-28] MEDS ORDERED: PROMETHAZINE HCL 25 MG/ML INJ IVP PRN (09:37)
--- NOTE | 2019-02-28 09:46 | OBDEL ---
Info Type: Repeat Presentation at Delivery: Vertex (2nd twin breech) L&D Analgesia/Anesthesia Type: Spinal GBS+: No Intrapartum Medications: Generic Name Dose Route Start Last Admin Trade Name Freq PRN Reason Stop Dose Admin Lactated Ringer's 1,000 mls @ 125 mls/hr 02/28/19 06:01 02/28/19 07:35 Lr IV 03/01/19 06:00 1,000 mls CONT ERICKA Administration Discontinued Medications Generic Name Dose Route Start Last Admin Trade Name Freq PRN Reason Stop Dose Admin Citric Acid/Sodium Citrate 30 ml 02/28/19 06:01 02/28/19 07:34 Bicitra PO 02/28/19 06:02 30 ml ONCALL ONE Administration Cefazolin Sodium/Dextrose 100 mls @ 200 mls/hr 02/28/19 06:01 02/28/19 07:35 Ancef IV 02/28/19 06:30 100 mls ONCALL ONE Administration Protocol - Care Provider [employer] Operator/RADIOGRAPHY TECHNICIAN: Jenny Hackett Indications for Delivery: Elective (twins, cholestasis of ) Operative Report - Delivery Pre-op Diagnoses: IUP @ 37 1/7 weeks, h/o c section desires repeat, twins, cholestasis of , multiparity desires sterilization Post-op Diagnoses: same History of Prior Section: Yes Number of Prior Sections: 1 Nulliparous Prior to Delivery: No Indications for Prior Section: Breech Indications for Current Section: Elective/Repeat, Other (Specify) ( twins, cholestasis of ) Surgeon: Ciara Claudio Records Manager: Marlene Bedolla ([facility]) Anesthesiologist: Alvaro Rudd Complications: None Findings: normal uterus, tubes and ovaries Specimen(s)/Path: Fallopian Tube(s) IV Fluid (ml): 2,200 EBL: 1000 Data DAMIAN: 03/20/19 Gestational Age: 37 week(s) and 1 day(s) Twin A Delivery Date: 02/28/19 Delivery Time: 08:21 Sex of : Male Weight (gm): 2760 g Score (1 Min): 8 Score (5 Min): 9 Twin B Delivery Date: 02/28/19 Delivery Time: 08:22 Sex of : Male Weight (gm): 2650 kg Score (1 Min): 7 Score (5 Min): 8 ICD10 Worksheet Patient Problems: Problems Problem Status Onset Delivery by (planned) section occurring after 37 completed weeks of gestation but before 39 completed weeks gestation due to (spontaneous) onset of labor, with mention of complication Acute Twin gestation in third trimester Acute - ICD10 Problem Qualifiers (1) Delivery by (planned) section occurring after 37 completed weeks of gestation but before 39 completed weeks gestation due to (spontaneous) onset of labor, with mention of complication
[2019-02-28] MEDS ORDERED: oxyCODONE IR 5 MG TAB PO PRN (09:52)
--- NOTE | 2019-02-28 10:03 | POSTANESTH ---
Post Anesthetic Evaluation Cardiovascular Status: Normal, Stable Respiratory Status: Normal, Stable Level of Consciousness/Mental Status: Can Participate in Eval, Alert and Oriented Pain Control: Adequate, Prn Tx Ordered Nausea/Vomiting Control: Adequate, Prn Tx Ordered
--- NOTE | 2019-02-28 10:56 | GOP ---
[f rep st] OPERATIVE REPORT DATE OF OPERATION: 02/28/2019 SURGEON: Ciara Claudio MD SALES CORRESPONDENCE CLERK: 1. Dr. Marlene Bedolla. 2. Lyndsey Murphy CNM. ANESTHESIA: Spinal anesthesia. ANESTHESIOLOGIST: Dr. Stewart Rudd. PREOPERATIVE DIAGNOSIS: Intrauterine at 37 and 1/7 weeks gestation with diamniotic dichorionic twin gestation; history of section, desires repeat; cholestasis of ; and multiparity, desires permanent elective sterilization. POSTOPERATIVE DIAGNOSIS: Intrauterine at 37 and 1/7 weeks gestation with diamniotic dichorionic twin gestation; history of section, desires repeat; cholestasis of ; and multiparity, desires permanent elective sterilization. PROCEDURE PERFORMED: Repeat lower transverse section and bilateral salpingectomy. FINDINGS: Baby A, viable male, was born at 8:21, Apgars of 8 and 9, weight of 2660 g or 6 pounds 1 ounce. Baby B, also viable male, born at 8:22, weight of 2650 g, 5 pounds 13 ounces, Apgars of 7 and 8. ESTIMATED BLOOD LOSS: Estimated blood loss for the procedure was 1000 mL. INDICATIONS: The patient is a 34year-old 2, para 1-0-0-1, with a last menstrual period of 06/05/2018, an EDC of 03/20/2019, confirmed by a 7-week ultrasound. She was diagnosed with diamniotic dichorionic twin gestation at that 7-week ultrasound. Her has been complicated by a twin gestation. Baby B has a velamentous cord insertion. She has been followed closely with growth ultrasounds and both babies have done well, been well grown and have good concordant growth. At 35 weeks , she was diagnosed with cholestasis of . She was started on Ursodiol and delivery was recommended at 37 weeks. Liver functions were slightly elevated and her bile salts were positive. Her symptoms have been greatly improved on medication. Other than that, she has done well and progressed to 37 weeks gestation. Patient had a C section with G1, secondary to breech and she desires repeat C section. She declines trial of labor and baby B in breech presentation with a velamentous cord insertion as well. The patient is multiparous, desires permanent elective sterilization. She was consented for the procedure. She understood the risks and benefits, the risks including bleeding, infection, damage to internal organs, uterus, tubes, ovaries, bowel, bladder, nerves, blood vessels, ureters, risk of injury, risk of hemorrhage requiring blood transfusion, hysterectomy, or . She understood these risks and benefits and agreed to proceed. DESCRIPTION OF PROCEDURE: The patient was taken to the operating room where she was placed under spinal anesthesia without difficulty. She was prepped and draped in the dorsal supine position with a leftward tilt, and a Gracia catheter was placed in her bladder. After adequate anesthesia was assured and a WHO time -out was performed, a transverse skin incision was made in the previous C- section scar. The incision was carried down to the underlying layer of fascia with the Bovie. The fascia was incised midline and fascial incision was extended laterally with the bandage scissors. The superior aspect of the fascial incision was grasped with Darinel clamps, elevated and the rectus muscles were dissected off sharply. Inferior aspect of the fascial incision was grasped with Darinel clamps, elevated and the rectus muscles were dissected off sharply. Rectus muscles were in the midline. Peritoneum was entered sharply. Peritoneal incision was extended superiorly and inferiorly with good visualization of the bladder. Bladder blade was inserted. The vesicouterine peritoneum was grasped with pickups, entered sharply with Metzenbaum scissors. The incision was extended laterally and bladder flap was created digitally. Bladder blade was reinserted. The uterus was incised with a knife. There was clear amniotic fluid upon entry the uterine cavity. Baby A was in vertex presentation, was delivered atraumatically, stimulated, mouth and nose were bulb suctioned and we delayed cord clamping for 1 minute. While my general office assistant was holding baby A, I ruptured baby B's amniotic sac; was also clear fluid. Baby B was in bethany breech presentation, was delivered with standard breech extraction maneuvers and that baby was vigorous upon delivery. The cord was delayed clamping for 1 minute and then cord was clamped and cut for both babies. The babies were handed off to the waiting nurse practitioners. Cord bloods for both babies were obtained. The placenta was removed manually. The uterus was exteriorized, cleared of all clots and debris. The uterine incision was repaired with 0 Vicryl in a running locked fashion small areas of bleeding were repaired with 0 Vicryl in inverted mattress fashion and [id number] fashion. Area of bleeding laterally on the left side. We performed a uterine artery ligation and hemostasis was obtained. The hysterotomy incision was then held with pressure while we performed the salpingectomy after another WHO time-out was confirmed. The left fallopian tube was grasped with 2 Amarilys clamps and the LigaSure device was used from the cornual region all the way to the fimbriated end, was cauterized and cut, removed without difficulty and good hemostasis was assured. Identical procedure was performed with the right fallopian tube and again hemostasis was assured along the entire mesosalpinx and pedicle. Reinspection of the uterine incision again assured hemostasis. The uterus was returned to the abdomen. Gutters were cleared of all clots and debris. Reinspection of the uterine incision and the tubal sites were confirmed hemostasis. The rectus muscles were approximated with 2-0 Vicryl in inverted mattress fashion. The fascia was closed with #1 Vicryl in a running fashion. Subcutaneous layer was closed with 2-0 Vicryl and the skin was closed with 4-0 Vicryl. The patient tolerated the procedure well. Sponge, lap, needle and instrument counts were correct x2. The patient went to the recovery room in good condition. IV FLUIDS: 2200 mL. URINE OUTPUT: 100 mL. /[id number]/MODL MTDD
[2019-02-28] MEDS: KETOROLAC 30 MG/1 ML SDV IVP SCH ×3 (11:51→22:55)
[2019-02-28] MEDS: IBUPROFEN 600 MG TAB PO SCH ×2 (11:51→16:37)
[2019-02-28] MEDS: ONDANSETRON 4 MG/2 ML VIAL IVP PRN ×2 (15:05→21:25)
[2019-02-28] MEDS: ACETAMINOPHEN 325 MG TAB PO SCH ×2 (16:27→22:56)
--- NOTE | 2019-02-28 19:49 | OBPP ---
Progress Note Assessment/Plan: Assessment: 33 y/o POD 0 s/p Rpt LTCS BS twins Plan: Post support today, spoke to nursing. Zobethel prn, may keep albrecht in until am. support. 02/28/19 19:48 Subjective/ Course: 02/28/19 19:45 Pt is doing well. Her pain is well controlled with Tylenol and Toradol. She is struggling with breast feeding especially twin B. [place] had to go home to care for the sick kids, 2 and 7 year olds with gi virus. He may be home tonight. She has had some nausea controlled with Zofran. Objective: 02/28/19 06:25 Patient ABO/Rh A POSITIVE 02/28/19 06:25 Temp Pulse Resp BP Pulse Ox 36.3 C 59 L 16 107/66 95 02/28/19 16:21 02/28/19 18:12 02/28/19 18:12 02/28/19 16:21 02/28/19 18:12 Uterine Position/Fundal Height: Umbilicus -2 Uterine Tone: Firm Physical Exam - Physical Exam General Appearance: WD/WN, alert, no apparent distress Neck: non-tender, full range of motion, supple Respiratory: chest non-tender, lungs clear, normal breath sounds Cardiac/Chest: regular rate, rhythm Abdomen: normal bowel sounds, dressing (c/d/i) Extremities: swelling (1+), Amelia's sign (neg)
[2019-02-28] MEDS: SENNOSIDES/DOCUSATE SODIUM TAB PO SCH (21:25)
[2019-03-01] MEDS: KETOROLAC 30 MG/1 ML SDV IVP SCH (05:15)
[2019-03-01] MEDS: ACETAMINOPHEN 325 MG TAB PO SCH ×5 (05:15→23:42)
[2019-03-01] MEDS: IBUPROFEN 600 MG TAB PO SCH ×4 (05:24→23:42)
[2019-03-01] MEDS: ONDANSETRON 4 MG/2 ML VIAL IVP PRN (07:44)
--- NOTE | 2019-03-01 11:53 | OBPP ---
Progress Note Assessment/Plan: Assessment: 1) 33 y/o G2 now P3 s/p s/p RCS and b/l salpingectomy, Di-Di twins POD # 1 - pt is stable 2) Anemia - pt is asymptomatic 3) Cholestasis of - pt has some itching Plan: Continue routine post-op care Encourage ambulation UO inadequate with bladder scan showing 700cc retained; then straight cath for 450 cc clear urine Will cont to monitor and if UO still not adequate, will place indwelling albrecht- pt agrees with the plan Discussed itching and likely secondary to spinal and pain meds, pt declines antihistamine at this time; if it continues/worsens will restart Ursodiol Will start iron for anemia Plan for d/c home in 48-72hours. 03/01/19 11:46 Subjective/ Course: 02/28/19 19:45 Pt is doing well. Her pain is well controlled with Tylenol and Toradol. She is struggling with breast feeding especially twin B. [place] had to go home to care for the sick kids, 2 and 7 year olds with gi virus. He may be home tonight. She has had some nausea controlled with Zofran. 03/01/19 11:53 Pt seen and examined. Pain is well controlled with Toradal and Tylenol. She is OOB, valeriy regular diet, voiding without difficulty, but UO inadequate and passing flatus. No BM yet. Denies any f/c/v/CP or SOB. Notes some nausea, ? heartburn, pt wants TUMS. Some itching noted b/l extremities, unsure if related to meds or cholestasis. BF is going well with twin boys-working with . Objective: 03/01/19 05:13 Patient ABO/Rh A POSITIVE 02/28/19 06:25 Temp Pulse Resp BP Pulse Ox 36.6 C 81 13 110/75 95 03/01/19 07:45 03/01/19 07:45 03/01/19 07:45 03/01/19 07:45 03/01/19 07:45 Uterine Position/Fundal Height: Umbilicus -1 Uterine Tone: Firm Physical Exam - Physical Exam General Appearance: WD/WN, alert, no apparent distress Respiratory: lungs clear, normal breath sounds Cardiac/Chest: regular rate, rhythm Abdomen: normal bowel sounds, non-tender, soft, flatus (+), incision (C/D/I with steri strips in place) Extremities: non-tender, normal inspection Skin: normal color, warm/dry Neuro/Psych: alert, normal mood/affect, oriented x 3
[2019-03-01] MEDS: SENNOSIDES/DOCUSATE SODIUM TAB PO SCH ×2 (11:55→23:14)
[2019-03-01] MEDS ORDERED: ALBUTEROL 60 PUFFS/8 GM MDI IH PRN (12:00)
[2019-03-01] MEDS: FERRO-SEQUELS 65 MG TAB.ER PO SCH (13:46)
--- NOTE | 2019-03-01 16:11 | PDPAINCON ---
Pain Management Consultation Patient referred by : González - Subjective Pain is: under control Activity: able to ambulate - Objective Technique: spinal opioid Sensory and motor exam: block has resolved, no apparent ill effects Vital signs: stable - Assessment/Plan Assessment/Plan: other (Patient doing well s/p . No headache, no back pain, some urinary retention which is resolving. Pt satisfied with anesthetic care.)
[2019-03-01] MEDS: CALCIUM CARBONATE 500 MG CHEWABLE TAB PO PRN (17:17)
[2019-03-02] MEDS: IBUPROFEN 600 MG TAB PO SCH ×2 (04:53→12:30)
[2019-03-02] MEDS: CALCIUM CARBONATE 500 MG CHEWABLE TAB PO PRN (04:53)
[2019-03-02] MEDS: ACETAMINOPHEN 325 MG TAB PO SCH ×2 (06:46→12:57)
[2019-03-02] MEDS: FERRO-SEQUELS 65 MG TAB.ER PO SCH (09:00)
--- NOTE | 2019-03-02 09:15 | OBPP ---
Progress Note Assessment/Plan: Assessment: 1) 33 y/o G2 now P3 s/p s/p RCS and b/l salpingectomy, Di-Di twins POD2 - pt is stable. Ready for home. 2) Anemia - pt is asymptomatic. Iron supps. 3) Cholestasis of - Itching from yesterday resolved, maybe Duramorph , maybe Ursodiol. 4) Concern for postop urinary retention yesterday - straight cath for 450 cc clear urine, no voiding good output and spontaneously without issue. Fu in 2 wks incision check, 3 wks mood check, 6 wks routine PP visit. Rh pos, Rubella immune. 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 Her pain is well controlled with Tylenol and Toradol. She is struggling with breast feeding especially twin B. [place] had to go home to care for the sick kids, 2 and 7 year olds with gi virus. He may be home tonight. She has had some nausea controlled with Zofran. 03/01/19 11:53 Pt seen and examined. Pain is well controlled with Toradal and Tylenol. She is OOB, valeriy regular diet, voiding without difficulty, but UO inadequate and passing flatus. No BM yet. Denies any f/c/v/CP or SOB. Notes some nausea, ? heartburn, pt wants TUMS. Some itching noted b/l extremities, unsure if related to meds or cholestasis. BF is going well with twin boys-working with . 03/02/19 11:38 Doing great - feeling ready for home. Pain well controlled. BF going well. Itching now totally resolved. Has had BM's x 2, voiding no problem x many. Not needing any narcotics. Objective: 03/01/19 05:13 Patient ABO/Rh A POSITIVE 02/28/19 06:25 Temp Pulse Resp BP Pulse Ox 36.2 C 69 14 104/71 95 03/02/19 04:48 03/02/19 04:48 03/02/19 04:48 03/02/19 04:48 03/02/19 04:48 Uterine Tone: Firm Physical Exam - Physical Exam Abdomen: non-tender, soft, incision (CDI with steri strips), No distended
[2019-03-02] MEDS ORDERED: FAMOTIDINE 20 MG TAB PO SCH (09:30)
[2019-03-02 10:13] VITALS: BP 113/78
[2019-03-02] MEDS: SENNOSIDES/DOCUSATE SODIUM TAB PO SCH (10:13)
--- NOTE | 2019-03-02 11:27 | OBGCSDC ---
General Delivery Information - General Info : 2 Para: 1 Abortions: 0 Type: Repeat L&D Analgesia/Anesthesia Type: Spinal Admission Date: 02/28/19 Labs: Patient ABO/Rh A POSITIVE 02/28/19 06:25 Hct 31.2 % (38.0-47.0) L 03/01/19 05:13 - Hospital Course : 02/28/19 19:45 Pt is doing well. Her pain is well controlled with Tylenol and Toradol. She is struggling with breast feeding especially twin B. [place] had to go home to care for the sick kids, 2 and 7 year olds with gi virus. He may be home tonight. She has had some nausea controlled with Zofran. 03/01/19 11:53 Pt seen and examined. Pain is well controlled with Toradal and Tylenol. She is OOB, valeriy regular diet, voiding without difficulty, but UO inadequate and passing flatus. No BM yet. Denies any f/c/v/CP or SOB. Notes some nausea, ? heartburn, pt wants TUMS. Some itching noted b/l extremities, unsure if related to meds or cholestasis. BF is going well with twin boys-working with . - Delivery Providers Surgeon: Ciara Claudio Pipeline Systems Operator: Marlene Bedolla ([facility]) Anesthesiologist: Alvaro Rudd - Delivery Number of Prior Sections: 1 Indications for Current Section: Elective/Repeat, Other (Specify) ( twins, cholestasis of ) Intra-op Complications: None EBL: 1000 Data DAMIAN: 03/20/19 Gestational Age: 37 week(s) and 3 day(s) Twin A Delivery Date: 02/28/19 Delivery Time: 08:21 Sex of : Male Weight (gm): 2760 g Score (1 Min): 8 Score (5 Min): 9 Twin B Delivery Date: 02/28/19 Delivery Time: 08:22 Sex of Infant: Male Weight (gm): 2650 g Score (1 Min): 7 Score (5 Min): 8 Discharge Information - Discharge Information Condition: Good Instruction/Follow Up: See Instruction Sheet, Two Weeks (Incision Check), Four Weeks (Mood check before 3 weeks), Six Weeks (Routine PP visit)
== END 2019-03-02 13:15 | disposition home or self-care (01) | DRG 783 ==
LOC: FLD 05:35 → FOB 11:25
PROVIDERS: ADMIT Obstetrics & Gynecology; ATTEND Obstetrics & Gynecology
DX: O26.62 Liver and biliary tract disorders in childbirth (principal); K83.1 Obstruction of bile duct; O34.219 Maternal care for unspecified type scar from previous cesarean delivery; O30.043 Twin pregnancy, dichorionic/diamniotic, third trimester; O43.123 Velamentous insertion of umbilical cord, third trimester; O32.1XX2 Maternal care for breech presentation, fetus 2; R33.9 Retention of urine, unspecified; Z30.2 Encounter for sterilization; Z3A.37 37 weeks gestation of pregnancy
CPT/HCPCS: J0690; J1885; J2210; J2274; J2405; J2550; J2590; J2704; J2765; J3010